=== PATIENT | male | born 1990 | race Caucasian/White ===

== ENCOUNTER 2020-06-19 22:43 | Emergency (ER) | payer MEDICAID ==
[2020-06-19 22:58] VITALS: BP 136/84
--- NOTE | 2020-06-19 23:01 | ED Physician Documentation ---
PD HPI SKIN - Stated complaint Stated Complaint: FOOT PX - Chief complaint Chief Complaint: Ext Problem - History obtained from History obtained from: Patient - History of Present Illness Timing - onset: Last night Timing - duration: Days (1-2) Timing - details: Gradual onset, Still present Location: RLE (base of great toe) Quality / character: Painful, Discolored (red), Swelling (mild). No: Vesicular Associated symptoms: No: Fever, Myalgias Similar symptoms before: Has not had sx before Review of Systems Constitutional: denies: Fever, Chills Skin: denies: Abrasion (s), Laceration (s) Neurologic: denies: Focal weakness, Numbness PD PAST MEDICAL HISTORY - Past Medical History Past Medical History: No Cardiovascular: None Respiratory: None Neuro: None Endocrine/Autoimmune: None GI: None : None HEENT: None Psych: None Musculoskeletal: None Derm: None - Past Surgical History Past Surgical History: No - Present Medications Home Medications: Ambulatory Orders Medication Instructions Recorded Confirmed Colchicine 0.6 mg PO BID #6 capsule 06/19/20 Hydrocodone/Acetaminophen [[place] 1 each PO Q6H PRN #15 tablet 06/19/20 5-325 Tablet] Naproxen 500 mg PO BID #25 tablet 06/19/20 - Allergies Allergies/Adverse Reactions: Allergies Allergy/AdvReac Type Severity Reaction Status Date / Time No Known Drug Allergies Allergy Verified 06/19/20 22:55 - Social History Does the pt smoke?: No Smoking Status: Never smoker Does the pt drink ETOH?: Yes Does the pt have substance abuse?: No - Immunizations Immunizations are current?: Yes - POLST Patient has POLST: No PD ED PE NORMAL - Vitals Vital signs reviewed: Yes - General General: Alert and oriented X 3, No acute distress, Well developed/nourished - Derm Derm: Normal color, Warm and dry - Extremities Extremities: Other (The base of the right great toe on the dorsal and medial aspect have marked tenderness with some localized redness and warmth. There are no skin lesions nor pustules noted. There is mild effusion of the joint with swelling.) - Neuro Neuro: No motor deficit, No sensory deficit Results - Vitals Vitals: Vital Signs - 24 hr 06/19/20 22:53 Temperature 36.4 C L Heart Rate 79 Respiratory 17 Rate Blood Pressure 136/84 H O2 Saturation 98 Oxygen O2 Source Room air PD MEDICAL DECISION MAKING - ED course Complexity details: considered differential (Most consistent with gout with alternatives of tendinitis or arthritis. No locus for infection and does not appear infection. No injury so I do not see a reason for imaging.), d/w patient Departure - Departure Disposition: 01 Home, Self Care Clinical Impression: Pain of right great toe Acute gout Qualifiers: Gout site: toe Gout etiology: unspecified cause Laterality: right Qualified Code(s): M10.9 - Gout, unspecified Condition: Stable Record reviewed to determine appropriate education?: Yes Instructions: ED Arthritis Gout Follow-Up: ROSALBA MCINTYRE ARNP [Primary Care Provider] - Prescriptions: Colchicine 0.6 mg PO BID #6 capsule Naproxen 500 mg PO BID #25 tablet Hydrocodone/Acetaminophen [[place] 5-325 Tablet] 1 each PO Q6H PRN #15 tablet PRN Reason: Pain Comments: This sounds likely to be gout arthritis. Alternatively could be some repetitive injury or use such as tendinitis or acute arthritis. I would anticipated to be short-term with improvement. Use anti-inflammatories. We gave you a dose of a steroid here in the ER which should last for a couple of days. Also continue with naproxen NSAID twice daily for the next 7 days or so. We can also add colchicine which is more specific for gout twice daily for the next few days. Be sure to take these all with some food to reduce stomach irritation. To that add Tylenol or hydrocodone if needed for worse pain. Activity as tolerated over the next few days. I would anticipate improvement over the next several days and resolved within 3 to 5 days. Recheck if not following that time course. Typically we would not look to treat gout with preventative medicines or such based on a single episode. See if you have any pattern of repeated episodes in the near future. Discharge Date/Time: 06/20/20 00:01
[2020-06-19] MEDS: HYDROcod/ACETAM 5/325 MG TABLET PO STA (23:41)
[2020-06-19] MEDS: HYDROcod/ACET 5/325 Prepack 4 PO STA (23:42)
[2020-06-19] MEDS: COLCHICINE 0.6 MG TABLET PO STA (23:43)
[2020-06-19] MEDS: CHERRY SYRUP 10 ML UDC PO ONE (23:43)
[2020-06-19] MEDS: DEXAMETHASONE 10 MG/ML VIAL PO STA (23:43)
[2020-06-19] MEDS: NAPROXEN 250 MG TABLET PO STA (23:46)
== END 2020-06-20 00:01 | disposition home or self-care (01) ==
LOC: ED 22:43
DX: M10.071 Idiopathic gout, right ankle and foot (principal)
CPT/HCPCS: 99283; A9270

== ENCOUNTER 2020-09-04 12:54 | Outpatient (CLI) | payer MEDICAID | END 2020-09-04 12:55 | disposition home or self-care (01) | LOC: COV 12:54 | PROVIDERS: ATTEND Family Medicine | DX: Z20.828 Contact with and (suspected) exposure to other viral communicable diseases (principal) ==

== ENCOUNTER 2021-12-15 12:37 | Outpatient (CLI) | payer MEDICAID | END 2021-12-15 12:38 | disposition critical access hospital (66) | LOC: EMS 12:37 | DX: R05.9 Cough, unspecified (principal); R11.0 Nausea; R42 Dizziness and giddiness; R53.83 Other fatigue | CPT/HCPCS: A0425; A0427; A0999 ==

== ENCOUNTER 2021-12-15 12:56 | Emergency (ER) | payer MEDICAID ==
[2021-12-15] MEDS ORDERED: SODIUM CHLORIDE 0.9% 1,000 ML IV STA (13:00)
--- NOTE | 2021-12-15 13:02 | ED Physician Documentation ---
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 He developed some shortness of breath and lightheadedness. He still feels very weak. EMS found his carbon monoxide level to be 2 to 3%. He is not a smoker. No syncope. Review of Systems Constitutional: reports: Fatigue. denies: Fever, Chills Cardiac: reports: Chest pain / pressure. denies: Palpitations Respiratory: reports: Dyspnea. denies: Cough PD PAST MEDICAL HISTORY - Past Medical History Cardiovascular: None Respiratory: None Neuro: None Endocrine/Autoimmune: None GI: None : None HEENT: None Psych: None Musculoskeletal: None Derm: None - Past Surgical History Past Surgical History: No - Present Medications Home Medications: Ambulatory Orders Medication Instructions Recorded Confirmed Colchicine 0.6 mg PO BID #6 capsule 06/19/20 Hydrocodone/Acetaminophen [[place] 1 each PO Q6H PRN #15 tablet 06/19/20 5-325 Tablet] Naproxen 500 mg PO BID #25 tablet 06/19/20 Colchicine 0.6 mg PO BID #6 tablet 10/13/21 Naproxen [EC-Naproxen] 500 mg PO BID PRN #25 tab 10/13/21 - Allergies Allergies/Adverse Reactions: Allergies Allergy/AdvReac Type Severity Reaction Status Date / Time No Known Drug Allergies Allergy Verified 12/15/21 13:06 - Social History Does the pt smoke?: No Smoking Status: Never smoker Does the pt drink ETOH?: Yes Does the pt have substance abuse?: No - Immunizations Immunizations are current?: Yes - POLST Patient has POLST: No PD ED PE NORMAL - Vitals Vital signs reviewed: Yes - General General: Alert and oriented X 3, No acute distress - Neck Neck: Supple, no meningeal sign, No bony TTP - Cardiac Cardiac: RRR, No murmur - Respiratory Respiratory: No respiratory distress, Clear bilaterally - Abdomen Abdomen: Non tender - Neuro Neuro: Alert and oriented X 3, Normal speech - Psych Psych: Normal mood, Normal affect Results - Vitals Vitals: Vital Signs - 24 hr 12/15/21 13:06 Temperature 36.6 C Heart Rate 70 Respiratory 18 Rate Blood Pressure 144/86 H O2 Saturation 100 Oxygen O2 Source Room air Oxygen Flow Rate 8 - Labs Labs: Laboratory Tests 12/15/21 12/15/21 13:12 13:12 VBG pH 7.329 VBG pCO2 47.8 VBG pO2 33.7 VBG HCO3 24.6 VBG Total CO2 26.0 VBG O2 Saturation 67.4 VBG Base Excess -1.8 VBG Total Hgb 14.6 VBG Oxyhemoglobin 67 L VBG Carboxyhemoglobin 1.0 VBG Methemoglobin 0.4 PD MEDICAL DECISION MAKING - ED course ED course: Slowly feeling better during observation on oxygen here. His carbon monoxide level here is normal and venous blood gases unremarkable. Vitals and exam remained unremarkable. Departure - Departure Disposition: 01 Home, Self Care Clinical Impression: Dyspnea Qualifiers: Dyspnea type: shortness of breath Qualified Code(s): R06.02 - Shortness of breath; R06.00 - Dyspnea, unspecified; R06.01 - Orthopnea Inhalation of gaseous substance Qualifiers: Encounter type: initial encounter Injury intent: accidental or unintentional Qualified Code(s): T59.91XA - Toxic effect of unspecified gases, fumes and vapors, accidental (unintentional), initial encounter Condition: Good Record reviewed to determine appropriate education?: Yes Instructions: ED Dyspnea Shortness of Breath Comments: Take it easy the rest of the day, return for new or worsening symptoms. Make sure the truck gets fixed before anyone else drives it. Follow-up with your doctor as needed.
[2021-12-15 13:12] VITALS: BP 144/86
[2021-12-15 13:24] LABS: HEMOGLOBIN TOTAL, VENOUS WB 14.6 g/dL (12.0-18.0); VBG BASE EXCESS -1.8 mmol/L (-2 - +2); VBG HCO3 24.6 mmol/L (23-28); VBG OXYGEN SATURATION 67.4 % (60-80); VBG PCO2 47.8 mmHg (41-51); VBG PH 7.329 (7.31-7.41); VBG PO2 33.7 mmHg (25-47)
[2021-12-15 13:25] LABS: METHEMOGLOBIN VENOUS 0.4 % (0-1.5)
== END 2021-12-15 13:36 | disposition home or self-care (01) ==
LOC: EDUNIT# → ED 12:56
DX: R06.02 Shortness of breath (principal); R07.9 Chest pain, unspecified; T59.91XA Toxic effect of unspecified gases, fumes and vapors, accidental (unintentional), initial encounter
CPT/HCPCS: 36415; 82375; 82803; 99281; 99285

== ENCOUNTER 2021-12-20 09:23 | Outpatient (CLI) | payer MEDICAID ==
[2021-12-20 12:19] LABS: BASOPHILS % (AUTO) 0.6 %; EOSINOPHILS # (AUTO) 0.1 10^3/uL (0.0-0.7); EOSINOPHILS % (AUTO) 2.3 %; HCT - HEMATOCRIT 45.9 % (42.0-52.0); HGB - HEMOGLOBIN 15.3 g/dL (14.0-18.0); LYMPHOCYTES # (AUTO) 1.7 10^3/uL (1.5-3.5); LYMPHOCYTES % (AUTO) 32.3 %; MEAN CORPUSCULAR HEMOGLOBIN 28.5 pg (27.0-31.0); MEAN CORPUSCULAR HGB CONC 33.3 g/dL (32.0-36.0); MEAN CORPUSCULAR VOLUME 85.6 fL (80.0-94.0); MEAN PLATELET VOLUME 10.2 fL (7.4-11.4); MONOCYTES # (AUTO) 0.5 10^3/uL (0.0-1.0); MONOCYTES % (AUTO) 9.4 %; NEUTROPHILS # (AUTO) 2.9 10^3/uL (1.5-6.6); NEUTROPHILS % (AUTO) 55.2 %; PLT - PLATELET COUNT 298 10^3/uL (130-450); RED BLOOD COUNT 5.36 10^6/uL (4.70-6.10); RED CELL DISTRIBUTION WIDTH 12.1 % (12.0-15.0); WHITE BLOOD COUNT 5.3 x10^3/uL (4.8-10.8)
[2021-12-20 13:27] LABS: ALBUMIN 4.5 g/dL (3.2-5.5); ALBUMIN/GLOBULIN RATIO 1.3 (1.0-2.2); ALKALINE PHOSPHATASE 64 IU/L (42-121); ALT ALANINE AMINOTRANSFERASE 19 IU/L (10-60); AST ASPARTATE AMINOTRANSFERASE 26 IU/L (10-42); BUN - BLOOD UREA NITROGEN 17 mg/dL (6-20); CARBON DIOXIDE - CO2 29 mmol/L (21-32); CHLORIDE 101 mmol/L (101-111); CHOL/HDL RATIO 4.1 (<5.0); CHOLESTEROL 236 mg/dL; CRP - C-REACTIVE PROTEIN < 1.0 mg/dL (0-1.0); GFR - MDRD 88 (>89); GLUCOSE 98 mg/dL (70-100); HDL CHOLESTEROL 58 mg/dL; LDL CHOLESTEROL,CALCULATED 168 mg/dL; LDL/HDL RATIO 2.9 (<3.6); POTASSIUM 4.7 mmol/L (3.5-5.0); SODIUM 139 mmol/L (135-145); TRIGLYCERIDES 49 mg/dL; VLDL CHOLESTEROL 10 mg/dL
[2021-12-20 13:36] LABS: THYROID STIMULATING HORMONE 1.23 uIU/mL (0.34-5.60)
[2021-12-20 14:37] LABS: RHEUMATOID FACTOR NEGATIVE (Negative)
== END 2021-12-20 09:24 | disposition home or self-care (01) ==
LOC: LAB.N 09:23
PROVIDERS: ATTEND Family Medicine
DX: Z00.00 Encounter for general adult medical examination without abnormal findings (principal); M79.674 Pain in right toe(s); F41.9 Anxiety disorder, unspecified; F32.A Depression, unspecified
CPT/HCPCS: 36415; 80053; 80061; 83721; 84443; 84550; 85025; 85651; 86140; 86430